=== PATIENT | male | born 1955 | race Caucasian/White ===

== ENCOUNTER 2025-02-24 08:55 | Emergency (ER) | payer BC ==
[2025-02-24 10:23] LABS: APPEARANCE,URINE CLEAR; GLUCOSE,URINE NEGATIVE (NEGATIVE); OCCULT BLOOD,URINE TRACE-INTACT (NEGATIVE)
[2025-02-24 10:32] LABS: EPITHELIAL CELLS,URINE RARE (NONE-FEW)
== END 2025-02-25 13:41 | disposition home or self-care (01) ==
LOC: MW.ED 08:55
DX: R33.9 Retention of urine, unspecified (principal); Z75.3 Unavailability and inaccessibility of health-care facilities
CPT/HCPCS: 51702; 81001; 87086; 99283